=== PATIENT | female | born 1960 | race Caucasian/White ===

== ENCOUNTER 2018-05-31 13:22 | Day surgery (SDC) | payer OTHER, BC ==
[~2018-05-31] VITALS: Ht 162.6 cm; Wt 91.0 kg
[~2018-05-31 13:22] MED LIST: ASCO500; FERSU250ER PO; IBUP200; IRON325 MG PO
[2018-05-31] MEDS ORDERED: IBUP800 (14:03)
== END 2018-05-31 18:00 | disposition home or self-care (01) ==
LOC: ORSCSDS 13:22
PROVIDERS: Orthopaedic Surgery
PROC: 0RNK4ZZ Release Left Shoulder Joint, Percutaneous Endoscopic Approach (ICD-10-PCS; principal; 2018-05-31 15:00)
PROC: 0RBK4ZZ Excision of Left Shoulder Joint, Percutaneous Endoscopic Approach (ICD-10-PCS; principal; 2018-05-31 15:00)
PROC: 0LS24ZZ Reposition Left Shoulder Tendon, Percutaneous Endoscopic Approach (ICD-10-PCS; principal; 2018-05-31 15:00)
PROC: 0LQ24ZZ Repair Left Shoulder Tendon, Percutaneous Endoscopic Approach (ICD-10-PCS; principal; 2018-05-31 15:00)
DX: M75.42 Impingement syndrome of left shoulder (principal); S46.002A Unspecified injury of muscle(s) and tendon(s) of the rotator cuff of left shoulder, initial encounter; M75.22 Bicipital tendinitis, left shoulder; R01.1 Cardiac murmur, unspecified
CPT/HCPCS: C1713; J0171; J0690; J2250; J2405; J2795; J3010; J7120

== ENCOUNTER 2021-07-23 11:33 | Emergency (ER) | payer OTHER, BC ==
[~2021-07-23] VITALS: Ht 162.6 cm; Wt 92.1 kg
[~2021-07-23 11:33] MED LIST changes: +IBUP800
== END 2021-07-23 12:52 | disposition home or self-care (01) ==
LOC: ER 11:33
DX: H57.9 Unspecified disorder of eye and adnexa (principal)
CPT/HCPCS: 99283

== ENCOUNTER → 2023-05-12 | Outpatient (CLI) | payer MEDICARE ==
[2023-05-14 15:09] LABS: HPV 16 Negative (Negative); HPV 18 Negative (Negative); HPV OTHER HR TYPES Negative (Negative)
== END ==
LOC: LAB 09:30 → LAB SHORT 09:30
PROVIDERS: Internal Medicine
DX: Z12.4 Encounter for screening for malignant neoplasm of cervix (principal)
CPT/HCPCS: 87624; G0145